=== PATIENT | female | born 1970 | race Caucasian/White ===

== ENCOUNTER 2016-10-01 19:04 | Emergency (ER) | payer OTHER ==
[2016-10-01 19:50] VITALS: BP 136/78
--- NOTE | 2016-10-01 20:01 | UC ---
Cardiac HPI - HPI Summary HPI Summary: The patient comes in today for: 1. Chest/back pain: Onset: Yesterday. Palliative/provocative: Not moving makes it better. Movement makes it worse. Lifting arms or turning or "pretty much any movement" makes it worse. Sitting to standing makes it worse. Lifting her grandson (40 lbs) and it is excruciating. Quality: Aches all the time, but movement brings on the sharp pain. Region: Middle of the back and middle of chest. "Like it is going all the way through." Worse in the back. Taking a deep breath makes it worse. Severity: 4/10 still but with movement 8/10 with sharp pain being 10/10 Time: Constant. Associated symptoms: Shortness of breath: None by her description, but she states that she take take a deep breath due to pain. Injury: None. History of PE: None. Cough: None. Hemoptysis: None. LMP: Hyst. * - History of Current Complaint Chief Complaint: UCBackPain Stated Complaint: PAIN IN THE BACK Hx Obtained From: Patient - Allergy/Home Medications Allergies/Adverse Reactions: Allergies Allergy/AdvReac Type Severity Reaction Status Date / Time Latex Allergy Rash Verified 10/01/16 19:50 Home Medications: Home Medications Multiple Vitamins W/ Minerals [One Daily Multivitamin Wo] 1 tab PO DAILY [History Confirmed 10/01/16] PMH/Surg Hx/FS Hx/Imm Hx Previously Healthy: Yes Endocrine History Of: Denies: Diabetes, Thyroid Disease, Hyperthyroidism, Hypothyroidism, Dyslipidemia Cardiovascular History Of: Denies: Cardiac Disorders, Hypertension, Pacemaker/ICD, Myocardial Infarction , Congestive Heart Failure, Atrial Fibrillation, Deep Vein Thrombosis, Bleeding Disorders Respiratory History Of: Denies: COPD, Asthma, Bronchitis, Pneumonia, Pulmonary Embolism GI/ History Of: Denies: Gastroesophageal Reflux, Ulcer, Gastrointestinal Bleed, Gall Bladder Disease, Kidney Stones, Diverticulitis, Renal Disease, Urosepsis Neurological History Of: Denies: TIA, CVA, Dementia, Seizures, Migraine Psychological History Of: Denies: Anxiety, Depression, Bipolar Disorder, Schizophrenia, Post Traumatic Stress Disorder Cancer History Of: Denies: Lung Cancer, Colorectal Cancer, Breast Cancer, Cervical Cancer Other History Of: Negative For: HIV, Hepatitis B, Hepatitis C, Anticoagulant Therapy - Surgical History Surgical History: Yes Surgery Procedure, Year, and Place: Hysterectomy 2000 - Family History Known Family History: Positive: Cardiac Disease - Father at age 48 smoker, overweight--his father did the same thin Negative: Hypertension, Diabetes - Social History Occupation: Employed Full-time Alcohol Use: Rare Substance Use Type: None Smoking Status (MU): Never Smoked Tobacco Review of Systems Constitutional: Negative Skin: Negative Eyes: Negative ENT: Negative Respiratory: Shortness Of Breath Cardiovascular: Chest Pain Gastrointestinal: Negative Genitourinary: Negative All Other Systems Reviewed And Are Negative: Yes Physical Exam Triage Information Reviewed: Yes Appearance: Well-Appearing, Well-Nourished, Pain Distress - She moves slowly, but is able to get on the examination table by herself. Vital Signs: Initial Vital Signs Temp 99.0 F 10/01/16 19:44 Pulse 97 10/01/16 19:44 Resp 18 10/01/16 19:44 BP 136/78 10/01/16 19:44 Pulse Ox 98 10/01/16 19:44 Vital Signs Reviewed: Yes Eyes: Positive: Conjunctiva Clear. Negative: Discharge ENT: Positive: Hearing grossly normal. Negative: Pharyngeal erythema, Nasal congestion, Nasal drainage, TM bulging, TM dull, TM red, Tonsillar swelling, Tonsillar exudate Dental: Negative: Gross Decay/Caries @, Dental Fracture @ Neck: Positive: Supple, Nontender, No Lymphadenopathy. Negative: Nuchal Rigidity Respiratory: Positive: Lungs clear, No respiratory distress, No accessory muscle use. Negative: Chest non-tender - She has tendernes with pressure on the intrascapular area of the thoracic spine. No tenderness to palpation of the musculature of the rhomboid musculature., Crackles, Wheezing Cardiovascular: Positive: RRR, No Murmur Abdomen Description: Positive: Nontender, No Organomegaly, Soft. Negative: Distended, Guarding Musculoskeletal: Positive: Strength Intact - No obvios weakness. There is tenderness with palpation of the thoracic spine between the scapula. No tenderness to palpation of the muscles along the medical border of the scapulae Neurological: Positive: Alert, Muscle Tone Normal Psychological: Positive: Age Appropriate Behavior, Consolable Skin: Negative: rashes, breakdown Diagnostics - Laboratory Diagnostic Studies Completed/Ordered: EKG: Rate: 87. Rhythm: Sinus. Ectopy: None. Acute changes: NOne. CXR: unremarkable. Thoracic spine: slight scoliosis - Assessment/Plan Course Of Treatment: Patient was told that I was not able to exactly diagnose the cause of her pain at this time and told her of our diagnostic options. At this time, she agreed to EKG, thoracic spine and CXR imaging. She was told that no obvious cause for her spine pain and chest pain was found and therefore my formal recommendation for her is to go to the ER. However she stated that she did not want to do this. She feels comfortable going home because she thinks that it is muscular. She states that she does not want any medication for pain. - Clinical Impression Provider Diagnoses: Upper back pain/thoracic spine pain. Chest pain. Discharge - Discharge Plan Condition: Stable Disposition: AGAINST MEDICAL ADVICE Referrals: Alex Kovacs MD [Primary Care Provider] - As Soon As Possible (If you are not going to the ER for a more in-depth evaluation of your back/chest pain, please take the Advil as you said you were and see your primary care provider as soon as you can. If you get worse, please go to the ER.)
--- NOTE | 2016-10-01 21:08 | RAD ---
Indication: Back pain. 2 views of the lumbar spine demonstrates scoliosis of the lumbar spine. Convexity towards the right is noted. Pedicles appear intact. IMPRESSION: Mild dextroscoliosis is noted.
--- NOTE | 2016-10-01 21:08 | RAD ---
Indication: Chest pain. 2 views of the chest including dual energy PA views demonstrate no mediastinal shift. Heart is of normal size and configuration. Lung sales demonstrate no pleural fluid, pneumonia or pneumothorax. IMPRESSION: No active cardiopulmonary disease is noted.
== END 2016-10-01 21:50 | disposition left against medical advice (07) ==
LOC: UCEAST 19:04
DX: M54.6 Pain in thoracic spine (principal); R07.9 Chest pain, unspecified
CPT/HCPCS: 71020; 72080; 93005; 99212; G0463

== ENCOUNTER 2017-07-05 14:47 | Emergency (ER) | payer OTHER ==
--- NOTE | 2017-07-05 17:00 | UC ---
Respiratory Complaint HPI - HPI Summary HPI Summary: sore throat body aches cough fever and body aches for 1-2 days - History of Current Complaint Chief Complaint: UCGeneralIllness Stated Complaint: SORE THROAT,ACHES Time Seen by Provider: 07/05/17 16:53 Hx Obtained From: Patient Hx Last Menstrual Period: hyster ?: No Onset/Duration: Sudden Onset, Lasting Days, Still Present Timing: Constant Severity Initially: Moderate Severity Currently: Moderate Character: Cough: Nonproductive Aggravating Factors: Nothing Alleviating Factors: Nothing Associated Signs And Symptoms: Positive: Fever, Pleuritic Chest Pain, URI, Nasal Congestion - Allergies/Home Medications Allergies/Adverse Reactions: Allergies Allergy/AdvReac Type Severity Reaction Status Date / Time Latex Allergy Rash Verified 07/05/17 15:35 PMH/Surg Hx/FS Hx/Imm Hx Previously Healthy: Yes Other History Of: Negative For: HIV, Hepatitis B, Hepatitis C, Anticoagulant Therapy - Surgical History Surgical History: Yes Surgery Procedure, Year, and Place: Hysterectomy 2000 - Family History Known Family History: Positive: None, Cardiac Disease - Father at age 48 smoker, overweight--his father did the same thin Negative: Hypertension, Diabetes - Social History Occupation: Employed Full-time Lives: With Family Alcohol Use: Rare Substance Use Type: None Smoking Status (MU): Never Smoked Tobacco Review of Systems Constitutional: Fever, Chills, Fatigue Skin: Negative Eyes: Negative ENT: Sore Throat, Ear Ache, Nasal Discharge, Sinus Congestion Respiratory: Cough Cardiovascular: Negative Gastrointestinal: Negative Genitourinary: Negative Motor: Negative Neurovascular: Negative Musculoskeletal: Arthralgia, Myalgia Neurological: Negative Psychological: Negative Is Patient Immunocompromised?: No All Other Systems Reviewed And Are Negative: Yes Physical Exam Triage Information Reviewed: Yes Appearance: No Pain Distress, Well-Nourished, Ill-Appearing Vital Signs: Initial Vital Signs Temp 99 F 07/05/17 15:36 Pulse 120 07/05/17 15:36 Resp 20 07/05/17 15:36 BP 139/85 07/05/17 15:36 Pulse Ox 99 07/05/17 15:36 Vital Signs Reviewed: Yes Eye Exam: Normal Eyes: Positive: Conjunctiva Clear ENT Exam: Normal ENT: Positive: Normal ENT inspection, Hearing grossly normal, Pharynx normal, Nasal congestion, Nasal drainage, TMs normal, Uvula midline. Negative: Tonsillar swelling, Tonsillar exudate, Trismus, Muffled voice, Hoarse voice, Dental tenderness, Sinus tenderness Dental Exam: Normal Neck exam: Normal Neck: Positive: Supple, Nontender, No Lymphadenopathy Respiratory Exam: Normal Respiratory: Positive: Chest non-tender, Lungs clear, Normal breath sounds, No respiratory distress, No accessory muscle use Cardiovascular Exam: Normal Cardiovascular: Positive: RRR, No Murmur, Pulses Normal, Brisk Capillary Refill Musculoskeletal Exam: Normal Musculoskeletal: Positive: Strength Intact, ROM Intact, No Edema Neurological Exam: Normal Neurological: Positive: Alert, Muscle Tone Normal Psychological Exam: Normal Skin Exam: Normal UC Diagnostic Evaluation - Laboratory O2 Sat by Pulse Oximetry: 99 Respiratory Course/Dx - Course Course Of Treatment: Albuterol, Zithromax, increase fluids, follow with pcp prn - Differential Dx/Diagnosis Provider Diagnoses: Acute Bronchitis Discharge - Discharge Plan Condition: Stable Disposition: HOME Prescriptions: Albuterol HFA INHALER* [Ventolin HFA Inhaler*] 2 puff INH Q4H PRN #1 mdi PRN Reason: cough/chest tightness Azithromycin TAB* [Zithromax TAB (Z-MAGNO) 250 mg #6 tabs] 2 tab PO .TODAY, THEN 1 DAILY #1 magno Patient Education Materials: How to Use a Metered-Dose Inhaler (ED), Acute Bronchitis (ED) Forms: *Work Release Referrals: Alex Kovacs MD [Primary Care Provider] - If Needed
[2017-07-05] MEDS ORDERED: Ibuprofen TAB* 600 MG PO ONE (17:10)
[2017-07-05 17:18] VITALS: BP 124/73
[2017-07-05] MEDS ORDERED: Albuterol 2.5 MG/3 ML NEB.SOL* (0.083%) INH ONE (17:18)
[2017-07-05] MEDS ORDERED: Ipratropium 0.5MG/2.5ML NEB* 0.5 MG/2.5 ML NEB.SOLN INH ONE (17:19)
== END 2017-07-05 18:05 | disposition home or self-care (01) ==
LOC: UCEAST 14:47
DX: J20.9 Acute bronchitis, unspecified (principal); Z91.040 Latex allergy status
CPT/HCPCS: 87502; 87651; 99212; A9270-GY; G0463; J7644

== ENCOUNTER 2018-01-25 18:03 | Emergency (ER) | payer OTHER ==
[2018-01-25 18:13] VITALS: BP 150/106
--- NOTE | 2018-01-25 18:50 | UC ---
Lower Extremity/Ankle HPI - HPI Summary HPI Summary: This patient is a 47 year old F presenting to [facility] with a chief complaint of numbness, weakness, heaviness and tingling in bilateral legs since 4 days ago. Per triage note, patient notes she has been in physical therapy for 3 weeks now with no improvement. The patient rates the pain 5/10 in severity. Symptoms aggravated by nothing. Symptoms alleviated by nothing. Patient reports difficulty urinating. Patient denies bowel incontinence. Patient has hx of thoracic spine herniated disc. - History of Current Complaint Chief Complaint: UCLowerExtremity Stated Complaint: LEG NUMBNESS Time Seen by Provider: 01/25/18 18:34 Hx Obtained From: Patient Hx Last Menstrual Period: hyster Onset/Duration: Gradual Onset, Lasting Days - 4 days, Still Present Severity Initially: Mild Severity Currently: Mild Pain Intensity: 5 Pain Scale Used: 0-10 Numeric Aggravating Factor(s): Nothing Alleviating Factor(s): Nothing Able to Bear Weight: Yes - Allergies/Home Medications Allergies/Adverse Reactions: Allergies Allergy/AdvReac Type Severity Reaction Status Date / Time Latex, Natural Rubber Allergy Rash Verified 01/25/18 18:16 Home Medications: Home Medications Cyclobenzaprine TAB* [Flexeril 10 MG TAB*] 10 mg PO DAILY 01/25/18 [History Confirmed 01/25/18] Ibuprofen TAB* [Motrin TAB* 600 MG] 400 mg PO Q6H PRN 01/25/18 [History Confirmed 01/25/18] PMH/Surg Hx/FS Hx/Imm Hx Other Neurological History: thoracic spine herniated disc Other History Of: Negative For: HIV, Hepatitis B, Hepatitis C, Anticoagulant Therapy - Surgical History Surgical History: Yes Surgery Procedure, Year, and Place: Hysterectomy 2000 - Family History Known Family History: Positive: Cardiac Disease - Father at age 48 smoker, overweight--his father did the same thin, Other - cancers Negative: Hypertension, Diabetes - Social History Alcohol Use: Rare Substance Use Type: None Smoking Status (MU): Never Smoked Tobacco Review of Systems Constitutional: Negative - negative fever Gastrointestinal: Negative - negative vomiting Genitourinary: Other - difficulty urinating Neurological: Negative - negative bowel incontinence, Weakness - in both lower extremities, Numbness - in both lower extremities, Other - tingling and heaviness in both lower extremities All Other Systems Reviewed And Are Negative: Yes Physical Exam - Summary Physical Exam Summary: VITAL SIGNS: Reviewed. GENERAL: Patient is a well-developed and nourished FEMALE who is lying comfortable in the stretcher. Patient is not in any acute respiratory distress. HEAD AND FACE: Normocephalic EYES: PERRLA, EOMI x 2. EARS: Hearing grossly intact. MOUTH: Oropharynx within normal limits. NECK: Supple, trachea is midline, no adenopathy, no JVD, no carotid bruit. CHEST: Symmetric, no tenderness at palpation LUNGS: Clear to auscultation bilaterally. No wheezing or crackles. CVS: Regular rate and rhythm, S1 and S2 present, no murmurs or gallops appreciated. ABDOMEN: Soft, non-tender. Bowel sounds are normal. No abdominal abnormal pulsations. EXTREMITIES: Full ROM in all major joints, no edema, no cyanosis or clubbing. NEURO: Alert and oriented x 3. Speech is normal and follows commands. No vertebral tenderness, decreased sensation in bilateral lower extremities, no weakness SKIN: Dry and warm Triage Information Reviewed: Yes Vital Signs: Initial Vital Signs Temp 98.8 F 01/25/18 18:08 Pulse 83 01/25/18 18:08 Resp 18 01/25/18 18:08 BP 150/106 01/25/18 18:08 Pulse Ox 100 01/25/18 18:08 Vital Signs Reviewed: Yes Lower Extremity Course/Dx - Course Course Of Treatment: Patient has past medical history significant for chronic back pain. She reports that she has history of thoracic spine chronic pain. She reports that since Monday she is a having numbness, weakness, tingling and difficulty urinating. Therefore the patient will be directed to the emergency department to rule out cauda equina. I discussed the case with Vinay Dorado physician assisting the emergency department and he accepted the patient for transfer. The patient declined ambulance transport. Patient's will be driving the patient to the emergency department. - Differential Dx/Diagnosis Provider Diagnoses: parathesia, bilateral lower extremity numbness, rule-out cauda equina - Physician Notifications Discussed Patient Care With: Vinay Dorado Time Discussed With Above Provider: 18:50 Instructed by Provider To: MD Will See In ED Discharge - Sign-Out/Discharge Documenting (check all that apply): Patient Departure - Discharge Plan Condition: Stable Disposition: HOME-RECOMMEND TO ED Patient Education Materials: Paresthesia (ED) Referrals: Alex Kovacs MD [Primary Care Provider] - Additional Instructions: Patient will be discharged to the emergency department for further workup and management. Patient declined ambulance transport. - Billing Disposition and Condition Condition: STABLE Disposition: Home-Recommend to ED
== END 2018-01-25 19:00 | disposition home health service (06) ==
LOC: UCEAST 18:03
DX: R20.2 Paresthesia of skin (principal); R20.0 Anesthesia of skin; M51.24 Other intervertebral disc displacement, thoracic region; Z91.040 Latex allergy status; Z90.710 Acquired absence of both cervix and uterus; Z82.49 Family history of ischemic heart disease and other diseases of the circulatory system; Z80.9 Family history of malignant neoplasm, unspecified
CPT/HCPCS: 99212; G0463

== ENCOUNTER 2018-01-25 19:15 | Emergency (ER) | payer OTHER ==
[2018-01-25 21:43] VITALS: BP 0/0
== END 2018-01-25 21:42 | disposition left against medical advice (07) ==
LOC: ED 19:15
DX: M54.9 Dorsalgia, unspecified (principal); R20.0 Anesthesia of skin; Z53.21 Procedure and treatment not carried out due to patient leaving prior to being seen by health care provider

== ENCOUNTER 2019-07-15 13:00 | Emergency (ER) | payer OTHER ==
[2019-07-15 13:40] VITALS: BP 138/78
--- NOTE | 2019-07-15 13:52 | UC ---
Throat Pain/Nasal Aldo HPI - HPI Summary HPI Summary: 49-year-old woman comes in with a chief complaint of sinusitis symptoms for 3 weeks. She's had green rhinorrhea started to have blood in it. Cheese has a postnasal drip. Has sinus pressure. No complaint of any chest congestion. - History of Current Complaint Chief Complaint: UCGeneralIllness Stated Complaint: FEVER COUGH SINUS ISSUE HEADACHE Time Seen by Provider: 07/15/19 13:44 Hx Last Menstrual Period: hysterectomy Pain Intensity: 6 - Allergies/Home Medications Allergies/Adverse Reactions: Allergies Allergy/AdvReac Type Severity Reaction Status Date / Time Latex, Natural Rubber Allergy Rash Verified 07/15/19 13:40 Home Medications: Home Medications Acetaminophen [Tylenol Extra Strength] 1 tab PO TID PRN 07/15/19 [History Confirmed 07/15/19] LORazepam TAB(*) [Ativan 1 MG TAB (*)] 1 tab PO DAILY 07/15/19 [History Confirmed 07/15/19] PARoxetine HCL TAB* [Paxil TAB*] 10 mg PO DAILY 07/15/19 [History Confirmed ] PMH/Surg Hx/FS Hx/Imm Hx Previously Healthy: Yes - MULTIPLE MYELOMA Other History Of: Negative For: HIV, Hepatitis B, Hepatitis C, Anticoagulant Therapy - Surgical History Surgical History: Yes Surgery Procedure, Year, and Place: Hysterectomy 2000. 2018 thoracic spine surgery with radiation d/t malignant tumor. - Family History Known Family History: Positive: Cardiac Disease - Father at age 48 smoker, overweight--his father did the same thin, Other - cancers Negative: Hypertension, Diabetes - Social History Alcohol Use: Rare Substance Use Type: None Smoking Status (MU): Never Smoked Tobacco Review of Systems All Other Systems Reviewed And Are Negative: Yes Constitutional: Positive: Other - SEE HPI Skin: Positive: Negative Eyes: Positive: Negative ENT: Positive: Sore Throat, Nasal Discharge, Sinus Congestion Respiratory: Positive: Negative Cardiovascular: Positive: Negative Gastrointestinal: Positive: Negative Motor: Positive: Negative Neurovascular: Positive: Negative Musculoskeletal: Positive: Negative Neurological: Positive: Negative Psychological: Positive: Negative Is Patient Immunocompromised?: No Physical Exam Triage Information Reviewed: Yes Appearance: Well-Appearing, No Pain Distress, Well-Nourished Vital Signs: Initial Vital Signs Temp 99.6 F 07/15/19 13:34 Pulse 87 07/15/19 13:34 Resp 17 07/15/19 13:34 BP 138/78 07/15/19 13:34 Pulse Ox 98 07/15/19 13:34 Vital Signs Reviewed: Yes Eye Exam: Normal Eyes: Positive: Conjunctiva Clear ENT: Positive: Pharyngeal erythema, Nasal drainage, TMs normal Neck: Positive: Supple, Nontender Respiratory: Positive: Lungs clear, Normal breath sounds, No respiratory distress Cardiovascular: Positive: RRR Musculoskeletal: Positive: Strength Intact, ROM Intact Neurological: Positive: Alert, Muscle Tone Normal Psychological: Positive: Age Appropriate Behavior Skin Exam: Normal Throat Pain/Nasal Course/Dx - Differential Dx/Diagnosis Provider Diagnosis: Sinusitis Discharge ED - Sign-Out/Discharge Documenting (check all that apply): Patient Departure All imaging exams completed and their final reports reviewed: No Studies - Discharge Plan Condition: Stable Disposition: HOME Prescriptions: Amoxicillin/Clavulanate TAB* [Augmentin TAB 875*] 875 mg PO BID #20 tab Fluticasone NASAL SPRAY 50MCG* [Flonase NASAL SPRAY 50MCG*] 2 spray BOTH NARES DAILY #1 btl Patient Education Materials: Sinusitis (ED) Referrals: Raul Leon MD [Primary Care Provider] - Additional Instructions: FOLLOW UP WITH YOUR DOCTOR. GET REEVALUATED SOONER IF NOT IMPROVED OR WORSE OR ANY QUESTIONS OR CONCERNS. - Billing Disposition and Condition Condition: STABLE Disposition: Home
== END 2019-07-15 14:06 | disposition home or self-care (01) ==
LOC: UCEAST 13:00
DX: J32.9 Chronic sinusitis, unspecified (principal); Z91.040 Latex allergy status; Z85.79 Personal history of other malignant neoplasms of lymphoid, hematopoietic and related tissues
CPT/HCPCS: 99212; G0463

== ENCOUNTER 2019-07-23 13:02 | Day surgery (SDC) | payer OTHER ==
[~2019-07-23 13:02] MED LIST: Buffered Lidocaine 1% SYRIN* 1 ML/SYRINGE INTRADERM ONE; Famotidine IV* 10 MG/ML 2 ML (20 mg) IV ONE; Lactated Ringers 1000 ML Bag* 1,000 ML IV SCH
[2019-07-23] MEDS ORDERED: Buffered Lidocaine 1% SYRIN* 1 ML/SYRINGE INTRADERM ONE (14:59)
[2019-07-23] MEDS ORDERED: ceFAZolin 2 GM in NS PREMIX(*) 2 GM/100 ML BAG IVPB ONE (15:00)
[2019-07-23] MEDS ORDERED: Famotidine IV* 10 MG/ML 2 ML (20 mg) ONE (15:00)
[2019-07-23] MEDS ORDERED: Lidocaine 1% INJ* 10 MG/ML 30 ML SDV ONE (17:17)
[2019-07-23] MEDS ORDERED: Dexamethasone IV* 4 MG/ML 1 ML (4 MG) ONE (17:29)
[2019-07-23] MEDS ORDERED: Ketorolac INJ* 30 MG/ML 1 ML VIAL ONE (17:29)
[2019-07-23] MEDS ORDERED: KETAMINE HCL* 50 MG/ML 10 ML VIAL ONE (17:29)
[2019-07-23] MEDS ORDERED: Ondansetron INJ* 2 MG/ML VIAL ONE (17:29)
[2019-07-23] MEDS ORDERED: Lidocaine 2% PF * 5 ML VIAL ONE (17:29)
[2019-07-23] MEDS ORDERED: fentaNYL* 50 MCG/ML 2 ML VIAL (100 MCG VIAL) ONE (17:29)
[2019-07-23] MEDS ORDERED: Propofol* 10 MG/ML 20 ML BTL ONE (17:29)
[2019-07-23] MEDS ORDERED: Midazolam* 1 MG/ML 10 ML VIAL (10 MG) ONE (17:30)
[2019-07-23] MEDS ORDERED: Heparin 2 UNITS/ML IVPREMIX* 0 ML IV ONE (19:26)
[2019-07-23] MEDS ORDERED: oxyCODONE TAB* 5 MG TAB PO PRN (19:51)
[2019-07-23 20:55] VITALS: BP 129/84
--- NOTE | 2019-07-24 02:40 | OP ---
CC: Luis Carlos Hester MD * DATE OF OPERATION: 07/23/19 - [facility] DATE OF : 74 SURGEON: Todd Molina M.D. C D AREA SUPERVISOR: None. ANESTHESIOLOGIST: Dr. Young. ANESTHESIA: Local MAC. PRE-OP DIAGNOSIS: Multiple myeloma. POST-OP DIAGNOSIS: Multiple myeloma. OPERATIVE PROCEDURE: Placement of PowerPort via a left cephalic vein cutdown. ESTIMATED BLOOD LOSS: Less than 5 mL. IV FLUIDS: Crystalloids. SPECIMENS: None. DRAINS: None. COMPLICATIONS: None. COUNTS: Instrument, needle, and sponge counts correct. DESCRIPTION OF PROCEDURE: The patient was brought to the operating room and placed on table supine. Sequential compression devices were placed on both lower extremities, and general anesthesia was administered. The abdomen was prepped and draped in the usual sterile fashion and time-out was performed. Local anesthetic was infiltrated into the skin and soft tissue prior to the procedure. The left subclavian approach was chosen, however, after multiple attempts at accessing the vein without success, it was decided to proceed with a left cephalic vein cutdown. Local anesthetic was infiltrated into the left upper chest and transverse incision was created. Subcutaneous tissues were divided and the deltopectoral triangle was identified. Blunt dissection was used to dissect out the cephalic vein, which was isolated with 3-0 silks. The vein was ligated distally. The venotomy was created with 11-blade scalpel and the catheter was threaded proximally into the vein. This was done with a fair bit of difficulty in manipulation of the vein and it was determined that the difficulty is most likely due to a valve. Ultimately, the position of the catheter was confirmed under fluoroscopy with the tip at the atriocaval junction. The catheter was cut to 28 cm length and connected to the port, which was placed into a subcutaneous pocket in the left upper chest. It was secured there with two 2-0 Prolene sutures. The port was accessed, it isela and flushed easily. It was flushed with heparinized saline. The wound was closed in two layers with 3-0 Vicryl for the subcutaneous tissues and 4-0 Monocryl in a running subcuticular for the skin and the DermaFlex was applied. The patient tolerated the procedure well. She was transferred to Recovery in stable condition where postop chest x-ray revealed no evidence of pneumothorax and good position of the line. [id number]/[facility] #: [id number] [facility]ITALRemington
== END 2019-07-23 21:02 | disposition home or self-care (01) ==
LOC: OR 13:02
PROVIDERS: ATTEND Surgery
DX: C90.00 Multiple myeloma not having achieved remission (principal); F41.9 Anxiety disorder, unspecified; K58.9 Irritable bowel syndrome, unspecified
CPT/HCPCS: 71045; 76000; C1788; J0690; J1100; J1642; J1644; J1885; J2250; J2405; J2704; J3010

== ENCOUNTER 2019-07-29 17:35 | Emergency (ER) | payer OTHER ==
--- OUTSIDE RECORDS SUMMARY | 2019-07-29 17:41 | XMS REPORT | Continuity of Care Document ---
:1970 External Reference #:[id number] Author Name Todd Molina MD, FACS (transmitted by agent of provider Ozzie Katz) Address [address] [place] [address] Care Team Providers Name Role Phone Raul Leon MD - Family Medicine Care Team Information Revenue Tax Specialist [phone] Luis Carlos Hester MD - Hematology Care Team Information Revenue Tax Specialist [phone] Problems Active Problems Provider Date Allergic rhinitis Raheem Segovia M.D.,FACP Onset: 11/13/2009 Allergic rhinitis due to pollen Raheem Segovia M.D.,FACP Onset: 2006 Social History Type Date Description Comments Sex Unknown Tobacco Use Start: Unknown Never Smoked Cigarettes ETOH Use Rarely consumes alcohol Recreational Drug Use Denies Drug Use Tobacco Use Start: Unknown Patient has never smoked Smoking Status Reviewed: 07/19/19 Patient has never smoked Exercise Type/Frequency Exercises regularly Allergies, Adverse Reactions, Alerts Active Allergies Reaction Severity Comments Date Latex rash 06/11/2007 Medications Active Medications SIG Qnty Indications Ordering Provider Date Lorazepam as needed Unknown 1mg Tablets Fluticasone 2 sprays to each Unknown Propionate Nasal nare daily [place] 50mcg/Act Suspension Paxil one pill daily as Unknown 10mg Tablets directed Augmentin one by mouth every Unknown 875-125mg 12 hours for ten Tablets days Immunizations CPT Code Status Date Vaccine Lot # [id number] Given 04/25/2010 Influenza Virus 3Yrs & Over [id number] Given 08/20/2007 Hepatitis A Vaccine Adult Dosage [id number] Given 08/20/2007 Hepatitis A Vaccine Adult Dosage [id number] Vital Signs Date Vital Result Comment 07/19/2019 11:28am Height 63.5 inches 5'3.50" Weight 185.00 lb Heart Rate 78 /min BP Systolic Sitting 126 mmHg BP Diastolic Sitting 84 mmHg Respiratory Rate 16 /min Body Temperature 97.2 F BMI (Body Mass Index) 32.3 kg/m2 02/07/2012 10:47am Height 63.5 inches 5'3.50" Weight 203.00 lb Heart Rate 80 /min BP Systolic Sitting 126 mmHg BP Diastolic Sitting 86 mmHg BMI (Body Mass Index) 35.4 kg/m2 Results Description No Information Available Procedures Date Code Description Status 11/22/2007 [id number] Mammogram Completed Medical Devices Description No Information Available Encounters Description No Information Available Assessments Date Code Description Provider 07/19/2019 C90.00 Multiple myeloma not having achieved Todd Molina MD, FACS remission Plan of Treatment Future Appointment(s):07/23/2019 3:15 pm - Todd Mol[facility] MD, [facility]07/19/2019 - Todd Molina MD, FACSC90.00 Multiple myeloma not having achieved remissionRecommendations:Powerport placement Functional Status Description No Information Available Mental Status Description No Information Available Referrals Description No Information Available
[2019-07-29 17:48] VITALS: BP 142/85
--- NOTE | 2019-07-29 17:51 | UC ---
Abdominal Pain Female HPI - HPI Summary HPI Summary: Patient's a 49-year-old female with a diagnosis of multiple myeloma. Patient scheduled short chemotherapy on 08/07/19. Patient states today she started taking Bactrim as prescribed which is 1 tablet Monday preventatively. Patient's also supposed to start taking acyclovir twice a day on Monday preventatively. Patient states she is here today because for the last 2 days she has had discomfort in her vaginal area. Patient states she feels that her labia and clitoris are inflamed. Patient states when she urinates she has tremendous discomfort. Patient has a hard time discerning whether discomfort is related to irritation of the labia or the urethra pain. Patient states she is urinating without difficulty. Patient states she did notice a slight laboratory urine. Patient denies any vaginal itching, odor, or discharge. No back pain. No diarrhea. no abdominal pain. Patient states she's had yeast infections in the past when she's had antibiotics and states she did have antibiotics recently when she had her mediport placed. Pt states she tried a topical cream with little improvement - no itching. Patient does have a sexual partner has no concerns about STIs. Patient states she's never had any STIs including herpes. Patient states she is not . Patient states her partner has no symptoms. Patient's medications is entered in the EMR by triage was reviewed this visit. - History of Current Complaint Chief Complaint: UCGU Stated Complaint: URINARY COMPLAINT Time Seen by Provider: 07/29/19 17:36 Hx Obtained From: Patient, Medical Records Hx Last Menstrual Period: hysterectomy Severity Initially: Moderate Severity Currently: Moderate Pain Intensity: 6 Allergies/Adverse Reactions: Allergies Allergy/AdvReac Type Severity Reaction Status Date / Time Latex, Natural Rubber Allergy Rash Verified 07/29/19 17:48 Home Medications: Home Medications Aspirin 1 tab PO DAILY 07/29/19 [History Confirmed 07/29/19] Sulfamethox/Trimethoprim DS* [Bactrim DS 800/160 TAB*] 1 tab PO SEE INSTRUCTIONS 07/29/19 [History Confirmed 07/29/19] PMH/Surg Hx/FS Hx/Imm Hx Previously Healthy: Yes Other History Of: Negative For: HIV, Hepatitis B, Hepatitis C, Anticoagulant Therapy - Surgical History Surgical History: Yes Surgery Procedure, Year, and Place: Hysterectomy 2000. 2018 thoracic spine surgery with radiation d/t malignant tumor. port placed for chemo, left side - Family History Known Family History: Positive: Cardiac Disease - Father at age 48 smoker, overweight--his father did the same thin, Other - cancers, Non-Contributory Negative: Hypertension, Diabetes - Social History Lives: With Family Alcohol Use: None Substance Use Type: None Smoking Status (MU): Never Smoked Tobacco Have You Smoked in the Last Year: No Review of Systems All Other Systems Reviewed And Are Negative: Yes Constitutional: Positive: Negative Skin: Positive: Negative Eyes: Positive: Negative ENT: Positive: Negative Is Patient Immunocompromised?: No Physical Exam - Summary Physical Exam Summary: Vital Signs Reviewed: Yes A+Ox3, no distress Eyes: Conjunctiva Clear HEENT: uvula midline, no exudate, no erythema Neck: Positive: Supple Respiratory: Positive: No respiratory distress, No accessory muscle use + CTA throughout no w/r Cardiovascular: RRR nl s1, s2 no m/r CBT <2 sec abd soft + BS nt/nd no guarding, no distension pevlic: YESSENIA Frazier at bedside: Pt with mild inflammation right labia majora flat ulcerative lesions noted one at apex, 4 clustered right labia majora + TTP no fluctuance, no drainage, odor, discharge Musculoskeletal Exam: MEJIA x 4 without difficulty Strength Intact, ROM Intact Neurological: Positive: Alert, + sensation throughout Psychological: Positive: Normal Response To examiner Skin: Positive: no rash, no ecchymosis, left anterior chest wall- port placed - ecchymosis at skin surface - wound c/d/i no warmth, no drainage Triage Information Reviewed: Yes Vital Signs: Initial Vital Signs Temp 100.3 F 07/29/19 17:43 Pulse 83 07/29/19 17:43 Resp 18 07/29/19 17:43 BP 142/85 07/29/19 17:43 Pulse Ox 99 07/29/19 17:43 Images Perineum Female: 1 - flat, ulcerative lesion with mild surrounding edema and erythema 2 - 4 flat, 2-3, ulcerative appearing lesions with mild erythema and edema, + TTP Abd Pain Female Course/Dx - Course Course Of Treatment: Patient presents to urgent care reporting vaginal pain progressive for the last 24 hours. Patient states she's been having urinary frequency and burning. Patient also complaining of discomfort in her labia insulin they're swollen. Patient was recently received any buttocks preoperatively because she had a Mediport placed and she is starting chemotherapy on 08/07/19. Patient states when she urinates it alonzo and she is unsure of the source. - Differential Dx/Diagnosis Provider Diagnosis: Vaginitis, Dysuria Discharge ED - Discharge Plan Condition: Stable Disposition: HOME Prescriptions: Acyclovir [Zovirax] 400 mg PO TID AC #21 tablet Sulfamethox/Trimethoprim DS* [Bactrim DS 800/160 TAB*] 1 tab PO BID #100 tab Patient Education Materials: Vaginitis (ED), Dysuria (ED) Referrals: Christos Rendon MD [Medical Doctor] - Luis Carlos Hester MD [Primary Care Provider] - Additional Instructions: I discussed with your provider today, there are 2 concerns related to today's evaluation and treatment.. 1) doctors concerned that she may have a bladder infection. This is because you have some burning when urinating as well as the presence of leuk esterase ( white blood cells) in your urine. Urine has been sent for additional testing. If it is positive for bladder infection we will make sure that the hepatic he started on today treat infection you have. If you need a different treatment, you will received a phone call from us. This will take 2-3 days. We will start you on Bactrim twice a day for a total of 5 days. 2) You had testing for a vaginal yeast infection today as well - this is because of your recent antibiotic use - your examination was not concerning for a yeast infection however. If you need treatment for this, you will receive call from a care shipping team leader, 3) the doctor also noted that he had some lesions on her labia on the right side during a vaginal exam today. The doctor explained to she is concerned this is caused by a virus possibly herpes. You had a swab test of the lesion as well as a blood test to look for herpes as wekk as a blood drawn at urgent care today these test also take several days to come back. We're going to start you on the treatment for by outbreak which is acyclovir 4 times a day for 7 days. It is strongly recommended that she use Vaseline as a barrier between her labia and your urine sodium urine does not stinging or burning these lesions It is okay to alternate ibuprofen and Tylenol as needed for pain I strongly recommended to contact your oncologist as well as your business management specialist tomorrow to discuss her care plan. They were able to review the labs that were drawn today and felt that he was the feel is appropriate. It's recommended if you have any questions or concerns which include uncontrolled fever, vomiting, pain, or other symptoms to go to the emergency department for further evaluation and treatment. - Billing Disposition and Condition Condition: STABLE Disposition: Home
[2019-07-31 12:57] LABS: Herpes Simplex Virus I IgG AB Negative (Negative); Herpes Simplex Virus II IgG AB Positive (Negative)
--- NOTE | 2019-07-31 14:52 | UC ---
- Progress Note Progress Note: HSV 2 positive (genital herpes). Pt was made aware this was likely at her visit. Please call to let her know genital herpes is confirmed and to continue medication as prescribed. Important to let her chemo doctor aware Course/Dx - Diagnoses Provider Diagnoses: Vaginitis, Dysuria Discharge ED - Sign-Out/Discharge Documenting (check all that apply): Post-Discharge Follow Up All imaging exams completed and their final reports reviewed: No Studies - Discharge Plan Condition: Stable Disposition: HOME Prescriptions: Acyclovir [Zovirax] 400 mg PO TID AC #21 tablet Sulfamethox/Trimethoprim DS* [Bactrim DS 800/160 TAB*] 1 tab PO BID #100 tab Patient Education Materials: Vaginitis (ED), Dysuria (ED) Referrals: Christos Rendon MD [Medical Doctor] - Luis Carlos Hester MD [Primary Care Provider] - Additional Instructions: I discussed with your provider today, there are 2 concerns related to today's evaluation and treatment.. 1) doctors concerned that she may have a bladder infection. This is because you have some burning when urinating as well as the presence of leuk esterase ( white blood cells) in your urine. Urine has been sent for additional testing. If it is positive for bladder infection we will make sure that the hepatic he started on today treat infection you have. If you need a different treatment, you will received a phone call from us. This will take 2-3 days. We will start you on Bactrim twice a day for a total of 5 days. 2) You had testing for a vaginal yeast infection today as well - this is because of your recent antibiotic use - your examination was not concerning for a yeast infection however. If you need treatment for this, you will receive call from a care medical director/head team physician, 3) the doctor also noted that he had some lesions on her labia on the right side during a vaginal exam today. The doctor explained to she is concerned this is caused by a virus possibly herpes. You had a swab test of the lesion as well as a blood test to look for herpes as wekk as a blood drawn at urgent care today these test also take several days to come back. We're going to start you on the treatment for by outbreak which is acyclovir 4 times a day for 7 days. It is strongly recommended that she use Vaseline as a barrier between her labia and your urine sodium urine does not stinging or burning these lesions It is okay to alternate ibuprofen and Tylenol as needed for pain I strongly recommended to contact your oncologist as well as your retail customer service specialist tomorrow to discuss her care plan. They were able to review the labs that were drawn today and felt that he was the feel is appropriate. It's recommended if you have any questions or concerns which include uncontrolled fever, vomiting, pain, or other symptoms to go to the emergency department for further evaluation and treatment. - Billing Disposition and Condition Condition: STABLE Disposition: Home
[2019-07-31 19:29] LABS: Herpes Source vaginal
[2019-07-31 20:27] LABS: Varicella Zoster Result Negative (Negative); Varicella Zoster Source LABIAL LESION
== END 2019-07-29 19:16 | disposition home or self-care (01) ==
LOC: UCEAST 17:35
DX: N76.0 Acute vaginitis (principal); R30.0 Dysuria; Z91.040 Latex allergy status
CPT/HCPCS: 81003; 86695; 86696; 87086; 87480; 87510; 87529; 87798; 99212; G0463

== ENCOUNTER 2020-01-24 19:01 | Inpatient (IN) ==
[2020-01-24] MEDS ORDERED: NS 0.9% 1000 ml BAG 1,000 ML IV.FLUID IV ONE (19:22)
[2020-01-24] MEDS ORDERED: Cefepime 2 GM in Dextrose(*) 2 GM/50 ML BAG IV ONE (19:39)
[2020-01-24] MEDS ORDERED: VANCOMYCIN IVPB SCH (20:00)
[2020-01-24] MEDS ORDERED: NS 0.9% IVPB SCH (20:00)
[2020-01-24 20:44] LABS: Hematocrit 25 % (35-47); Hemoglobin 8.9 g/dL (12.0-16.0); Mean Corpuscular HGB Conc 36 g/dL (31-36); Mean Corpuscular Hemoglobin 33 pg (27-31); Mean Corpuscular Volume 91 fL (80-97); Mean Platelet Volume 8.9 fL (7.4-10.4); Platelet Count 139 10^3/uL (150-450); Red Blood Count 2.71 10^6 /uL (3.70-4.87); Red Cell Distribution Width 14 % (10-15); White Blood Count 4.8 10^3/uL (3.5-10.8)
[2020-01-24 20:45] LABS: ABS Lymphocytes 0.2 10^3/ul (1.0-4.8); ABS Monocytes 0.7 10^3/ul (0-0.8); Lymphocyte % 4.6 %; Nucleated Red Blood Cells % 0.1
[2020-01-24 20:55] LABS: Activated Partial Thrombo Time 30.1 seconds (26.0-38.0); INR 1.09 (0.82-1.09)
[2020-01-24 21:00] LABS: Albumin 3.6 g/dL (3.2-5.2); Albumin/Globulin Ratio 1.6 (1-3); BUN/Creatinine Ratio 7.5 (8-20); Calcium 8.3 mg/dL (8.6-10.3); EGFR Non-African American 76.9 (>60); Globulin 2.2 g/dL (2-4); Potassium 3.3 mmol/L (3.5-5.0); Total Bilirubin 0.1 mg/dL (0.2-1.0); Total Protein 5.8 g/dL (6.4-8.9)
[2020-01-24 21:47] LABS: Urine Appearance Clear; Urine Bilirubin Negative (Negative); Urine Blood Negative (Negative); Urine Color Straw; Urine Glucose Negative (Negative); Urine Ketones Negative (Negative); Urine Nitrite Negative (Negative); Urine Protein Negative (Negative); Urine Specific Gravity 1.004 (1.010-1.030); Urine Urobilinogen Negative (Negative)
[2020-01-24] MEDS ORDERED: Vancomycin(*) 1,000 MG - ED ONCE IV ONE (23:00)
[2020-01-24] MEDS ORDERED: NS 0.9% 1000 ml BAG 1,000 ML IV SCH (23:15)
[2020-01-24] MEDS ORDERED: Potassium Chlor 20 meq TAB.ER PO ONE (23:17)
[2020-01-24] MEDS ORDERED: Ondansetron 4 mg VIAL 2 MG/ML 2 ml VIAL IV PRN (23:22)
[2020-01-24] MEDS ORDERED: Vancomycin per Pharmacy 1 EA NOTE FOLLOW UP SCH (23:45)
[2020-01-25] MEDS ORDERED: Vancomycin(*) 750 MG in NS 0.9% 250 ml 250 ML IVPB ONE (00:30)
[2020-01-25] MEDS: Enoxaparin 40 MG/0.4 ML SYR(*) SUBCUT SCH ×2 (03:17→20:26)
[2020-01-25] MEDS: Cefepime 2 GM in Dextrose(*) 2 GM/50 ML BAG IV SCH ×3 (04:45→20:24)
[2020-01-25] MEDS ORDERED: Vancomycin Trough Check NOTE FOLLOW UP ONE (07:15)
[2020-01-25] MEDS ORDERED: Vancomycin(*) 1,000 MG in NS 0.9% 250 ml 250 ML IV SCH ×2 (07:30→13:00)
[2020-01-25 08:49] LABS: Calcium 7.2 mg/dL (8.6-10.3); EGFR African American 114.2 (>60); EGFR Non-African American 94.3 (>60); Potassium 3.6 mmol/L (3.5-5.0)
[2020-01-25] MEDS ORDERED: NS 0.9% 1000 ml BAG 1,000 ML IV SCH (10:15)
[2020-01-25 12:17] LABS: Vancomycin Trough 7.7 mcg/mL
[2020-01-25] MEDS: Vancomycin(*) 1,250 MG in NS 0.9% 250 ml 250 ML IV SCH ×2 (14:03→22:20)
[2020-01-25 16:48] LABS: ABS Lymphocytes 0.2 10^3/ul (1.0-4.8); ABS Monocytes 0.5 10^3/ul (0-0.8); Hematocrit 22 % (35-47); Hemoglobin 7.9 g/dL (12.0-16.0); Lymphocyte % 4.4 %; Mean Corpuscular HGB Conc 36 g/dL (31-36); Mean Corpuscular Hemoglobin 32 pg (27-31); Mean Corpuscular Volume 90 fL (80-97); Mean Platelet Volume 7.9 fL (7.4-10.4); Nucleated Red Blood Cells % 0.1; Platelet Count 144 10^3/uL (150-450); Red Blood Count 2.45 10^6 /uL (3.70-4.87); Red Cell Distribution Width 14 % (10-15); White Blood Count 4.3 10^3/uL (3.5-10.8)
[2020-01-26] MEDS: Cefepime 2 GM in Dextrose(*) 2 GM/50 ML BAG IV SCH (04:31)
[2020-01-26 05:39] LABS: ABS Lymphocytes 0.1 10^3/ul (1.0-4.8); ABS Monocytes 0.3 10^3/ul (0-0.8); Hematocrit 22 % (35-47); Hemoglobin 7.9 g/dL (12.0-16.0); Lymphocyte % 3.8 %; Mean Corpuscular HGB Conc 35 g/dL (31-36); Mean Corpuscular Hemoglobin 32 pg (27-31); Mean Corpuscular Volume 91 fL (80-97); Mean Platelet Volume 8.3 fL (7.4-10.4); Nucleated Red Blood Cells % 0.1; Platelet Count 141 10^3/uL (150-450); Red Blood Count 2.48 10^6 /uL (3.70-4.87); Red Cell Distribution Width 14 % (10-15); White Blood Count 3.5 10^3/uL (3.5-10.8)
[2020-01-26] MEDS: Vancomycin(*) 1,250 MG in NS 0.9% 250 ml 250 ML IV SCH (05:39)
[2020-01-26 05:58] LABS: BUN/Creatinine Ratio 5.9 (8-20); Calcium 7.4 mg/dL (8.6-10.3); EGFR African American 112.2 (>60); EGFR Non-African American 92.7 (>60); Potassium 3.3 mmol/L (3.5-5.0)
[2020-01-26 08:21] VITALS: BP 111/63
[2020-01-26] MEDS ORDERED: Potassium Chlor 20 meq TAB.ER PO ONE (09:12)
== END 2020-01-26 11:47 | disposition home or self-care (01) | DRG 864 ==
LOC: ED 19:01 → MEDTELE 23:35
PROVIDERS: ADMIT Hospitalist; ATTEND Internal Medicine